=== PATIENT | female | born 1975 | race Hispanic/Latino ===

== ENCOUNTER 2024-07-31 16:37 | Emergency (ER) | payer SELFPAY ==
[~2024-07-31] VITALS: Ht 157.5 cm; Wt 83.9 kg
[2024-07-31 16:55] VITALS: PULSE 78; RESP 16; TEMP 98.8; O2SAT 97
[2024-07-31 17:27] LABS: CLARITY,URINE HAZY (CLEAR); COLOR,URINE YELLOW (YELLOW)
[2024-07-31 17:28] LABS: GLUCOSE, URINE 1+ (NEGATIVE); KETONES,URINE TRACE (NEGATIVE); LEUKOCYTE ESTERASE ,URINE SMALL (NEGATIVE); NITRITE,URINE POSITIVE (NEGATIVE); PH,URINE 5.5 (5 - 7); PROTEIN,URINE DIPSTICK >=300 (NEGATIVE); URINE UROBILINOGEN 1 mg/dL (0.2 - 1)
[2024-07-31 17:29] LABS: AMORPHOUS SEDIMENT,URINE FEW; BACTERIA,URINE MODERATE /HPF; BILIRUBIN,URINE SMALL (NEGATIVE); EPITHELIAL CELLS,URINE FEW /LPF; MUCUS,URINE FEW; RBC,URINE >50 /HPF (0-5); WBC,URINE (MAN) >50 /HPF (0-5)
[2024-07-31 17:30] LABS: PREGNANCY TEST, URINE NEGATIVE (NEGATIVE)
[2024-07-31] MEDS ORDERED: PYRIDIUM100 MG PO (17:49)
[2024-07-31] MEDS ORDERED: CEFDINIR300 MG PO (17:49)
== END 2024-07-31 18:20 | disposition home or self-care (01) ==
LOC: ER 17:06
DX: R30.0 Dysuria (principal); N39.0 Urinary tract infection, site not specified; R10.30 Lower abdominal pain, unspecified
CPT/HCPCS: 81001; 81025; 87086; 87186; 99283